=== PATIENT | male | born 1975 | race Caucasian/White ===

== ENCOUNTER → 2020-01-08 16:02 | Outpatient (BNVA) | payer OTHER, SELFPAY | PROVIDERS: Family Provider Family Medicine; Visit Provider Family Medicine | DX: Z20.828 Contact with and (suspected) exposure to other viral communicable diseases (principal) | CPT/HCPCS: 87635 ==

== ENCOUNTER 2021-02-02 16:16 | Emergency (ER) | payer OTHER, SELFPAY ==
[2021-02-02 18:03] VITALS: BP 189/97; PULSE 93; RESP 16; TEMP 36.7; O2SAT 97; BMI 36.5
--- NOTE | 2021-02-02 18:13 | ECG_ITS ---
[facility] Test Date: 2021-02-02 Pat Name: Alex Mcdonough Department: Room: Gender: Male Assurance Analyst: : 1975 Requested By: Praveen Coronado Order Number: [id number] Lees MD: Yelena Moore M.D. Measurements Intervals [place] Rate: 89 P: 21 NM: 178 QRS: -35 QRSD: 95 T: 34 QT: 349 QTc: 426 Interpretive Statements SINUS RHYTHM LEFT AXIS DEVIATION [QRS AXIS < -30] MINIMAL VOLTAGE CRITERIA FOR LVH, CONSIDER NORMAL VARIANT [MEETS CRITERIA IN ONE OF: R(aVL), S(V1), R(V5), R(V5/V6)+S(V1)] POSSIBLE ANTERIOR MYOCARDIAL INFARCTION , OF INDETERMINATE AGE [30 ms Q WAVE IN V3/V4, OR R < 0.2 mV IN V4] INTERPRETATION BASED ON A DEFAULT AGE OF 40 YEARS No previous ECG available for comparison Electronically Signed On 02-02-2021 22:00:38 VALET MANAGER by Yelena Moore M.D. [id number]
--- NOTE | 2021-02-02 18:14 | ED_ITS ---
HPI - Headache General: Chief Complaint: Headache Stated Complaint: HBP bad headache Time Seen by Provider: 02/02/21 19:27 History of Present Illness: HPI Narrative: Patient is a 45-year-old male comes to the ED with a headache and elevated blood pressure. He has been having on and off headaches for the past 2 months. This recent acute headache started approximately 2 days ago. He rates the headache 7 out of 10 and pain is located in the frontal vertex of head. On Monday he took his blood pressure and he had a reading of 180s/120. He then went and saw his PCP on Monday and he had elevated blood pressures there and he was started on some losartan. Today he still having bad headache and he checked his blood pressures again at home. Had a systolic close to 190. Denies any neurological deficits. Patient endorses having some nausea and vomiting once the past 2 days due to headache. Denies chest pain or shortness of breath. Associated symptoms: Reports nausea (one episode) and vomiting (one episode); Deny chest pain, fever(s) or rash Review of Systems Const: Denies: fever(s), chills or fatigue Eyes: Denies: change in vision or eye discomfort ENMT: Denies: throat pain, odynophagia, nasal discharge or nasal congestion Card: Denies: chest pain, palpitations, edema, swelling of feet/ankles, dyspnea on exertion or orthopnea Resp: Denies: dyspnea, productive cough or non-productive cough GI: Reports: nausea (one episode) and vomiting (one episode); Denies: abdominal pain, diarrhea, constipation or hematochezia : Denies: flank pain, difficulty urinating, dysuria or hematuria Musc: Denies: neck pain, back pain or extremity swelling Skin/Breast: Denies: rash or new lesions Neuro: Reports: headache(s); Denies: numbness in extremities or weakness in extremities PFS ED PFSH: Social History Smoking and tobacco status: never smoked Physical Exam Const: COMMON NORMALS: no acute distress, patient oriented x3 and alert GENERAL APPEARANCE: cooperative and comfortable NUTRITIONAL APPEARANCE: overweight HENMT: COMMON NORMALS: normocephalic HEAD & SCALP: normocephalic MOUTH: Normal oral and palatal mucosa present THROAT: posterior oropharynx normal and uvula midline Eye: COMMON NORMALS: Equal, round and reactive pupils present, EOMs intact bilaterally and conjunctivae normal CONJUNCTIVA: Yes conjunctivae normal PUPIL: Yes Equal, round and reactive pupils present Neck/C-Spine: COMMON NORMALS: supple GENERAL: Yes normal visual inspection Resp: COMMON NORMALS: normal respiratory effort, No retractions, No use of accessory muscles and clear to auscultation bilaterally AUSCULTATION: clear to auscultation bilaterally Cardio: COMMON NORMALS: regular rate, regular rhythm, S1 normal heart sound present, S2 normal heart sound present, No gallops present (Cardio), No clicks present (Cardio), No murmurs present (Cardio) and Peripheral pulses 2+ throughout RATE: regular rate RHYTHM: regular rhythm HEART SOUNDS: S1 normal heart sound present and S2 normal heart sound present PERIPHERAL PULSES: Peripheral pulses 2+ throughout GI: COMMON NORMALS: Normal to inspection, nondistended, normoactive bowel sounds present, Soft to palpation, non-tender and no masses PALPATION: Yes Soft to palpation : COMMON NORMALS: Yes no CVA tenderness BLADDER/KIDNEY EXAM: Yes no CVA tenderness Back/Pelvis: COMMON NORMALS: no CVA tenderness Extremity: COMMON NORMALS: normal to inspection Neuro: COMMON NORMALS: patient oriented x3, CN's II-XII intact bilaterally, moves all extremities, no focal motor deficits and no sensory deficits noted SENSORIUM/ORIENTATION: Yes alert SENSORY EXAM: Yes extremities (intact) MOTOR EXAM: 5/5 motor strength present throughout Skin: GENERAL SKIN EXAM: dry skin Course ED course: I performed the initial history, exam image and lab work-up orders on patient while he was being triaged. His main complaint was elevated blood pressure and headache for the past 3 days. Blood pressure in the ED was 189/97. Patient appears stable and in no acute distress. He has no neurological symptoms either. Denies any chest pain or shortness of breath. Patient appears stable to go back into the waiting room and told him we will try to get him into a room as soon as we can. Vital Signs: Vital signs: Vital Signs Temperature 98.6 F 02/02/21 21:16 Pulse Rate 76 02/02/21 21:16 Respiratory Rate 18 02/02/21 21:16 Blood Pressure 133/101 02/02/21 21:16 Pulse Oximetry 95 02/02/21 21:16 MDM - Headache MDM Narrative: Medical decision making narrative: Patient is a 45-year-old male comes to the ED with elevated blood pressure and headache for the past 3 days. Denies any neurological complaints. Denies any chest pain or shortness of breath. Pain is highest blood pressure here in the ED was 189/97. The rest of vitals were unremarkable. CT of head showed no acute findings. CBC and CMP were unremarkable. EKG showed sinus rhythm, 89 beats minute with no ST segment ovation depression seen. Patient was given a dose of Toradol IM while here in the ED to help with headache and his headache did improve. His blood pressure at discharge is 133/101. Patient was told to continue taking his recently prescribed losartan and told to continue checking his blood pressures multiple times throughout the day and keeping a log of them that he can show to his PCP. Follow-up with PCP in 7 to 10 days reevaluation. Return to ED precautions given. Patient understood and agree with plan. Lab Data: Attestation: I reviewed the patient's lab results. Labs: Lab Results 02/02/21 02/02/21 18:20 18:20 WBC 11.9 10^3/uL H 10 ^3/uL (4.0-10.0) RBC 5.16 10^6/uL 10^6 /uL (4.1-5.3) Hgb 15.5 g/dL g/dL (11.7-16.6) Hct 45.1 % % (42.0-52.0) MCV 87.4 fl fl (80-94) MCH 30.0 pg pg (28.0-34.0) MCHC 34.4 g/dL g/dL (30.0-36.0) RDW 13.2 % % (12.1-15.1) Plt Count 253 10^3/cmm 10^3 /cmm (130-400) MPV 11.5 fL H fL (7.4-10.4) Neut % (Auto) 74.9 % % Lymph % (Auto) 17.0 % % Hyde % (Auto) 6.6 % % Eos % (Auto) 0.8 % % Baso % (Auto) 0.4 % % Neut # (Auto) 8.91 10^3/uL H 10 ^3/uL (1.8-7.7) Lymph # (Auto) 2.0 10^3/uL 10^3/ uL (0.8-4.8) Hyde # (Auto) 0.8 10^3/uL 10^3/ uL (0.2-0.9) Eos # (Auto) 0.1 10^3/uL 10^3/ uL (0.0-0.8) Baso # (Auto) 0.1 10^3/uL 10^3/ uL (0.0-0.1) Nucleated RBC % (a uto) 0 % % Nucleated RBCs # 0.0 /100WBC /100W BC Sodium 140 mmol/L mmol/L (136-145) Potassium 3.8 mmol/L mmol/L (3.5-5.1) Chloride 102 mmol/L mmol/L (98-107) Carbon Dioxide 25 mmol/L mmol/L (22-29) Anion Gap 16.8 (5-19) BUN 10 mg/dL mg/dL (6-20) Creatinine 0.7 mg/dL mg/dL (0.7-1.2) GFR Calculation 121.4 mL/min mL/m in (90-130) Glucose 165 mg/dL H mg/dL (65-115) Calculated Osmolal ity 293 mOsm/kg mOsm/ kg (285-295) Calcium 9.0 mg/dL mg/dL (8.5-10.5) Total Bilirubin 0.2 mg/dL mg/dL (0.15-1.2) AST 24 U/L U/L (0-40) ALT 45 U/L H U/L (0-41) Alkaline Phosphata se 81 IU/L IU/L (40-130) Total Protein 7.2 g/dL g/dL (6.6-8.7) Albumin 4.2 g/dL g/dL (3.5-5.2) Globulin 3.0 g/dL g/dL (1.3-4.6) Imaging Data^: CT Head: Attestation: I personally reviewed and interpreted this imaging study as follows: Radiologist's impression: [address] [id number] Scan ReportSigned Patient: Alex Mcdonough Rlyee #: [id number]: 1975Acct#:[id number]/Sex: 45 / MADM Date: 02/02/21Loc: ERRoom/Bed:Attending Dr: Ordering Provider/Ordering MD: Praveen Coronado Date of Service: 02/02/21 Procedure(s): CT head wo con* [id number] Accession Number(s): [id number] Report Number: [id number] PROCEDURE INFORMATION: Exam: CT Head Without Contrast Exam date and time: 02/02/2021 6:13 PM Age: 45 years old Clinical indication: Pain; Headache not specified; Patient HX: Headache x3 months, hbp; Additional info: Headache and elevated BP TECHNIQUE: Imaging protocol: Computed tomography of the head without contrast. Radiation optimization: All CT scans at this facility use at least one of these dose optimization techniques: automated exposure control; mA and/or kV adjustment per patient size (includes targeted exams where dose is matched to clinical indication); or iterative reconstruction. COMPARISON: No relevant prior studies available. RADIATION DOSE METRICS: Total DLP (mGy-cm): 1006.94 FINDINGS: Brain: Normal. No hemorrhage. Unremarkable white matter. No mass effect. Cerebral ventricles: No ventriculomegaly. Paranasal sinuses: Visualized sinuses are unremarkable. No fluid levels. Mastoid air cells: Visualized mastoid air cells are well aerated. Bones/joints: Unremarkable. No acute fracture. Soft tissues: Unremarkable. CT/CT head wo con* [id number] IMPRESSION: No acute intracranial abnormality. Dictated By:Js Mcmanus MDSigned By:Js Mcmanus MDSigned Date/Time:02/02/21 1914DD/ 1813 EKG Data^: EKG 1: Attestation: I personally reviewed and interpreted this EKG as follows: EKG interpretation date: 02/02/21 Interpretation: Normal sinus rhythm, 89 bpm, no ST segment elevation or depression seen. 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 Measurements Intervals [place] Rate: 89 P: 21 WA: 178 QRS: -35 QRSD: 95 T: 34 QT: 349 QTc: 426 Interpretive Statements SINUS RHYTHM LEFT AXIS DEVIATION [QRS AXIS < -30] MINIMAL VOLTAGE CRITERIA FOR LVH, CONSIDER NORMAL VARIANT [MEETS CRITERIA IN ONE OF: R(aVL), S(V1), R(V5), R(V5/V6)+S(V1)] POSSIBLE ANTERIOR MYOCARDIAL INFARCTION , OF INDETERMINATE AGE [30 ms Q WAVE IN V3/V4, OR R < 0.2 mV IN V4] INTERPRETATION BASED ON A DEFAULT AGE OF 40 YEARS No previous ECG available for comparison Electronically Signed On 02-02-2021 22:00:38 LIFESTYLE BLOCK FARMER by Yelena Moore M.D. [id number] Dictated By:Yelena Moore MDSigned By:Yelena Moore MDSigned Date/Time:02/02/21D/ 14 Discharge Plan Discharge Patient Disposition: Home Clinical Impression: Headache Qualifiers: Headache type: tension-type Headache chronicity pattern: acute headache Intractability: not intractable Qualified Code(s): G44.209 - Tension-type headache, unspecified, not intractable Hypertension Qualifiers: Hypertension type: unspecified Qualified Code(s): I10 - Essential (primary) hypertension Condition: Stable Prescriptions: No Action ativan PO RF: 0 celexa PO RF: 0 Daptacel (DTaP Pediatric) (PF) 15-10-5 Lf-mcg-Lf/0.5mL suspension 0.5 ml IM ONCE Qty: 0.5 RF: 0 Discharge Orders: Discharge ED (Routine); Ordered 02/02/21 Ordered By: Praveen Coronado Discharge Diet: Regular Discharge Activity: Resume usual activity Patient Instructions: Acute Headache (DC), Hypertension (ED) Activity Restrictions/Additional Instructions: Follow-up with medical provider as directed in the next 7 to 10 days for reevaluation. Continue to check blood pressures daily and keep a log to show primary care doctor your blood pressures. Continue taking home medications as previously prescribed. Return to the ER or your medical provider if condition worsens. Please read and understand discharge instructions. Thank you for choosing [facility] for your healthcare needs today. Please realize this is an emergency room and that we are providing you with a medical screening exam and this may not be complete and all inclusive of all the testing and or work up that you may need to determine your ailment or severity of your illness. It is very important that you follow up as instructed or that you return to the Emergency Department should you have concerns or if your condition changes or worsens in any way. Coding Level of Care Code ED Headlight Assembler for Abelardo Murray Exam Comprehensive
[2021-02-02 18:28] LABS: Basophils # 0.1 10^3/uL (0.0-0.1); Basophils % 0.4 %; Eosinophils # 0.1 10^3/uL (0.0-0.8); Eosinophils % 0.8 %; Hematocrit 45.1 % (42.0-52.0); Hemoglobin 15.5 g/dL (11.7-16.6); Mean Corpuscular HGB Conc 34.4 g/dL (30.0-36.0); Mean Corpuscular Volume 87.4 fl (80-94); Mean Platelet Volume 11.5 fL (7.4-10.4); Monocytes # 0.8 10^3/uL (0.2-0.9); Monocytes % 6.6 %; Neutrophils # 8.91 10^3/uL (1.8-7.7); Neutrophils % 74.9 %; Nucleated Red Blood Cells % 0 %; Platelet Count 253 10^3/cmm (130-400); Red Blood Count 5.16 10^6/uL (4.1-5.3); Red Cell Distribution Width 13.2 % (12.1-15.1); White Blood Count 11.9 10^3/uL (4.0-10.0)
[2021-02-02 18:49] LABS: Alanine Aminotransferase 45 U/L (0-41); Albumin Level 4.2 g/dL (3.5-5.2); Alkaline Phosphatase 81 IU/L (40-130); Anion Gap 16.8 (5-19); Aspartate Amino Transferase 24 U/L (0-40); Blood Urea Nitrogen 10 mg/dL (6-20); Carbon Dioxide 25 mmol/L (22-29); Chloride 102 mmol/L (98-107); Glomerular Filtration Rate 121.4 mL/min (90-130); Glucose 165 mg/dL (65-115); Osmolality Calculated 293 mOsm/kg (285-295); Potassium 3.8 mmol/L (3.5-5.1); Sodium 140 mmol/L (136-145); Total Bilirubin 0.2 mg/dL (0.15-1.2); Total Protein 7.2 g/dL (6.6-8.7)
[2021-02-02] MEDS: ketorolac 60 mg/2 mL INJ IM (19:57)
[2021-02-02 21:16] VITALS: BP 133/101; PULSE 76; RESP 18; TEMP 37; O2SAT 95
== END 2021-02-02 21:21 | disposition home or self-care (01) ==
PROVIDERS: Emergency Provider Physician Assistant
DX: G44.209 Tension-type headache, unspecified, not intractable (principal); I10 Essential (primary) hypertension
CPT/HCPCS: 36415; 70450; 80053; 85025; 93005; 96372; 99283; J1885

== ENCOUNTER → 2021-08-17 09:37 | Outpatient (BNVA) | payer OTHER, SELFPAY | PROVIDERS: Visit Provider Family Medicine | DX: I10 Essential (primary) hypertension (principal); E11.9 Type 2 diabetes mellitus without complications; R79.89 Other specified abnormal findings of blood chemistry | CPT/HCPCS: 80053; 80061; 83036; 84403 ==

== ENCOUNTER → 2021-08-20 12:00 | Outpatient (BNVA) | payer OTHER, SELFPAY | PROVIDERS: Visit Provider Family Medicine | DX: R79.89 Other specified abnormal findings of blood chemistry (principal); I10 Essential (primary) hypertension | CPT/HCPCS: 84402 ==

== ENCOUNTER → 2021-09-17 08:52 | Outpatient (BNVA) | payer OTHER, SELFPAY | PROVIDERS: PCP Family Medicine; Visit Provider Family Medicine | DX: I10 Essential (primary) hypertension (principal); F32.A Depression, unspecified; E11.9 Type 2 diabetes mellitus without complications; R53.83 Other fatigue | CPT/HCPCS: 80053; 80061; 83036; 84402; 84403 ==

== ENCOUNTER 2021-10-06 10:40 | Emergency (ER) | payer OTHER, SELFPAY ==
[2021-10-06 11:07] VITALS: BP 148/92; PULSE 89; RESP 16; TEMP 36.8
--- NOTE | 2021-10-06 11:18 | CT_ITS ---
WS: [id number] CT LUMBAR SPINE TECHNIQUE: Noncontrast CT of the lumbar spine with coronal and sagittal reformatted images. CLINICAL INFORMATION: lumbar spine pain COMPARISON: None. DLP: 1736.[address] scans at [facility] use at least one of these dose optimization techniques: automated e xposure control; mA and/or kV adjustment per patient size (includes targeted exams where dose is matc hed to clinical indication); or iterative reconstruction. FINDINGS: Mild lumbar curve convex LEFT. No acute compression. Disc osteophyte complexes with peripheral disc c alcification more prominent at at T12-L1, L2-L3, and L5-S1. Moderate RIGHT T11-T12 bony foraminal renee rowing with RIGHT facet arthropathy. T12-L1: Disc osteophyte complex endplate ridging eccentric to the RIGHT. Mild central canal stenosis. Impingement traversing RIGHT L1 nerve root. Mild RIGHT foraminal narrowing. Moderate facet arthropat hy with mild central canal stenosis. L1-L2: Moderate facet arthropathy. Spinal canal and foramen are patent. Slight narrowing of the LEFT subarticular recess. Mild central canal stenosis. L2-L3: LEFT pericentral disc osteophyte complex. Moderate central canal stenosis. Impingement LEFT ha barticular recess and traversing LEFT L3 nerve root. Foramen are patent. L3-L4: Disc osteophyte complex with endplate ridging. Mild central canal stenosis. Narrowing of the s ubarticular recess bilaterally. Mild LEFT foraminal narrowing. Moderate facet arthropathy. L4-L5: Suggestion of prior LEFT hemilaminectomy. Disc osteophyte complex with mild central canal sten osis. Narrowing of the subarticular recess bilaterally LEFT greater than RIGHT. Foramen are patent. L5-S1: Disc osteophyte complex with LEFT pericentral disc osteophyte protrusion. Impingement traversi ng LEFT greater than RIGHT S1 nerve roots. Mild central canal stenosis. Moderate bilateral bony oliva inal narrowing. Moderate facet arthropathy. Adrenal glands are normal. Normal caliber abdominal aorta. CT/CT lumbar spine wo con* [id number] IMPRESSION: 1. Mild lumbar curve. No acute compression fractures. 2. Disc osteophyte complexes with peripheral disc calcification and mild to mo derate central canal stenosis at T12-L1, L2-L3, L3-L4, L4-L5. This is worse at L2-L3 with moderate central canal stenosis and impingement on the traversing LE FT L3 nerve root. 3. LEFT eccentric disc osteophyte complex L5-S1 impinges the traversing LEFT g reater than RIGHT S1 nerve roots. Moderate bilateral L5-S1 bony foraminal narro wing. 4. Moderate RIGHT T11-T12 bony foraminal narrowing. 5. Moderate facet arthropathy throughout the lumbar spine.
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
[2021-10-06] MEDS: orphenadrine 30 mg/mL Inj 2 mL 60 MG IVP (11:57)
[2021-10-06 11:58] VITALS: RESP 16
[2021-10-06] MEDS: morphine 4 mg/mL SDV 1 mL IM (11:58)
[2021-10-06 12:59] VITALS: BP 135/86; PULSE 90; RESP 16; O2SAT 98
[2021-10-06 13:21] VITALS: RESP 16
[2021-10-06] MEDS: oxyCODONE-APAP 5-325 mg Tablet 1 TAB PO (13:21)
--- NOTE | 2021-10-15 13:54 | DCPLANNER ---
Addendum entered by Lisbeth Tripp 10/28/21 13:41: craft manager called [facility] to confirm that clinic received patients information. craft manager was told that clinic received patients information and it is being worked up. Clinic will call patient with appointment information. Addendum entered by Lisbeth Tripp 10/26/21 12:19: craft manager received notification that patient wanted his referral to go to [facility] ortho - rehabilitation caseworker sent patients information to fax number [phone] for review. Clinic will call patient with appointment information. Original Note: craft manager had message to schedule a follow up appointment for patient with ortho. craft manager sent patients information to the front office staff at ortho. Patients information will be printed and reviewed. Clinic will call patient with appointment information.
== END 2021-10-06 14:14 | disposition home or self-care (01) ==
PROVIDERS: Emergency Provider Physician Assistant; PCP Family Medicine
DX: M51.16 Intervertebral disc disorders with radiculopathy, lumbar region (principal); M48.061 Spinal stenosis, lumbar region without neurogenic claudication; M47.26 Other spondylosis with radiculopathy, lumbar region; M25.78 Osteophyte, vertebrae
CPT/HCPCS: 72131; 96372; 96374; 99285; J2270; J2360

== ENCOUNTER 2023-11-22 19:53 | Emergency (ER) | payer OTHER, SELFPAY ==
[2023-11-22] VITALS (7 sets, daily range): BP systolic 119–137; BP diastolic 73–89; PULSE 83–95; RESP 16–18; TEMP 36.7; O2SAT 95–96; BMI 36.5
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
--- NOTE | 2023-11-22 20:01 | ECG_ITS ---
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 Measurements Intervals [place] Rate: 86 P: 43 AL: 185 QRS: -23 QRSD: 101 T: 21 QT: 372 QTc: 446 Interpretive Statements SINUS RHYTHM POSSIBLE ANTERIOR MYOCARDIAL INFARCTION , PROBABLY OLD [30 ms Q WAVE IN V3/V4, OR R < 0.2 mV IN V4] Compared to ECG 02/02/2021 18:15:49 Left-axis deviation no longer present Myocardial infarct finding still present Electronically Signed On 11-24-2023 07:42:47 CDT by Jaspal Stewart M.D. [id number]
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
[2023-11-22] MEDS: ketorolac 30 mg/mL INJ IVP (21:35)
[2023-11-22] MEDS: ondansetron 2 mg/ML SDV 2 mL 4 MG IVP (21:35)
[2023-11-22] MEDS: orphenadrine 30 mg/mL Inj 2 mL 60 MG IVP (21:35)
[2023-11-22] MEDS: HYDROmorphone 1 mg/mL INJ 1 mL 0.5 MG IVP (21:36)
[2023-11-22] MEDS: HYDROcodone-acetaminophen 5-325 mg Tablet 2 TAB PO (22:11)
== END 2023-11-22 22:14 | disposition home or self-care (01) ==
PROVIDERS: Emergency Provider Emergency Medicine; PCP Family Medicine
DX: S16.1XXA Strain of muscle, fascia and tendon at neck level, initial encounter (principal); S46.912A Strain of unspecified muscle, fascia and tendon at shoulder and upper arm level, left arm, initial encounter; V89.2XXA Person injured in unspecified motor-vehicle accident, traffic, initial encounter
CPT/HCPCS: 70450; 71250; 72125; 72128; 72131; 73000; 93005; 96374; 96375; 99285; J1170; J1885; J2360; J2405

== ENCOUNTER 2024-01-26 11:45 | Outpatient (CLI) | payer OTHER, SELFPAY ==
--- NOTE | 2024-01-26 11:45 | MR_ITS ---
WS: [id number] MRI THORACIC SPINE WITHOUT CONTRAST TECHNIQUE: Sagittal T1, T2 and STIR imaging. Axial T2 imaging. Noncontrast imaging obtained. 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 COMPARISON: CT 11/22/23 FINDINGS: Mild thoracic curve and mild thoracic kyphosis. No acute compression fractures. No high-grade central canal stenosis. Cord signal is normal. Moderate facet arthropathy lower thoracic spine. Mild annular bulging T12-L1 with slight effacement of the ventral thecal sac. Adrenal glands are normal. Normal caliber thoracic aorta. Normal paravertebral soft tissues. MR/MR thoracic spin wo con* [id number] IMPRESSION: 1. Mild thoracic curve. Mild thoracic kyphosis. No acute compression fractures . 2. Cord signal is normal. 3. Mild annular bulging T12-L1. 4. No other acute findings.
== END 2024-01-26 11:46 | disposition home or self-care (01) ==
PROVIDERS: PCP Family Medicine; Visit Provider Family Medicine
DX: M47.814 Spondylosis without myelopathy or radiculopathy, thoracic region (principal); M46.94 Unspecified inflammatory spondylopathy, thoracic region
CPT/HCPCS: 72146

== ENCOUNTER 2024-08-02 06:46 | Outpatient (CLI) | payer SELFPAY ==
--- NOTE | 2024-08-02 07:15 | MR_ITS ---
WS: [id number] MRI THORACIC SPINE noncontrast HISTORY: Back pain and muscle spasms. COMPARISON: 01/26/2024 TECHNIQUE: Multiplanar sequences are performed in sagittal and axial planes. Examination is compromised by motion. Mild thoracic curvature and kyphosis. No acute fractures are identified. Subtle marrow changes would be obscured with this amount of motion. There is signal artifact through the upper thoracic cord. The remaining cord is normal. No cord atrophy or edema. Moderate facet joint arthritis in the mid to lower thoracic spine. Mild annular disc bulging at with mild effacement encroachment upon the ventral thecal sac. Disc is asymmetric to the RIGHT. Encroachment upon the RIGHT traversing L1 nerve root. Similar to the prior study. No paravertebral soft tissue abnormalities. Normal aorta. T11-12: Facet joint arthropathy encroaches upon the posterior thecal sac greatest on the RIGHT at T11-12. MR/MR thoracic spin wo con* [id number] IMPRESSION: 1. Exam compromised by motion artifact. 2. No signal abnormality within the cord. 3. Asymmetric disc bulging at T12-L1 with contact on the traversing RIGHT L1 n erve root. Similar to the prior study. 4. Asymmetric facet joint arthropathy encroaching upon the posterior thecal sa c on the RIGHT at T11-12. No change.
== END 2024-08-02 06:47 | disposition home or self-care (01) ==
LOC: RAD 06:50
PROVIDERS: PCP Family Medicine; Visit Provider Family Medicine
DX: M47.814 Spondylosis without myelopathy or radiculopathy, thoracic region (principal); M51.34 Other intervertebral disc degeneration, thoracic region
CPT/HCPCS: 72146

== ENCOUNTER → 2024-08-27 13:40 | Outpatient (BNVA) | payer OTHER, SELFPAY | PROVIDERS: PCP Family Medicine; Visit Provider Orthopaedic Surgery | DX: M47.814 Spondylosis without myelopathy or radiculopathy, thoracic region (principal); M54.50 Low back pain, unspecified | CPT/HCPCS: 72072; 72110 ==

== ENCOUNTER 2024-10-15 09:47 | Emergency (ER) | payer OTHER, SELFPAY ==
--- NOTE | 2024-10-15 09:50 | USCV_ITS ---
Alex Mcdonough Age: 49 Gender: M : 1975 Exam Date: 10/15/2024 10:01 Ordering Phys: Gloria Frey MD Technologist: PETERSON Exam Location: [facility] [place] Indication: rt leg pain just under skin in rt calf PROCEDURES: Venous duplex imaging was performed in only the right lower extremity. The following venous structures were evaluated: common femoral vein, profunda vein, proximal portion of the greater saphenous vein, superficial femoral vein, and the popliteal vein. In addition, the posterior tibial and peroneal trunk were evaluated. FINDINGS: Normal 2-D Doppler and augmentation and compressibility throughout the lower extremity venous structures. Additional imaging through the proximal calf veins also reveals no thrombus. There is superficial thrombus in the rt great saph mid calf. CONCLUSIONS No DVT right lower extremity. Mild superficial thrombophlebitis right GSV in calf. Dr. Sandra Crisostomo DO (Electronically Signed) Final Date: 15 October 2024 10:40 S
[2024-10-15 09:51] VITALS: BP 126/88; PULSE 99; RESP 17; TEMP 36.6; O2SAT 97; BMI 37.5
--- OUTSIDE RECORDS SUMMARY | 2024-10-15 09:51 | XMS_ITS | Clinical Summary ---
Author Organization [facility] on Address [address] [place] [phone] Phone Care Team Providers Care Optometric Tech Name Role Phone Non-Staff, Physician Primary Care Provider Unava ilable Allergies No known active allergies Medications ALPRAZolam (XANAX) 0.25 mg tablet Take 0.25 mg by mouth nightly as needed for Anxiety. Active citalopram (CELEXA) 10 mg tablet Take 10 mg by mouth daily. Active Active Problems No known active problems Immunizations Immunization Administration Dates Next Due (TDVAX)(7 YRS UP) TETANUS AN D DIPHTHERIA TOXOIDS, ADSORBED (2 LF OF TETANUS TOXOID AND 2 LF OF DIPHTHERIA TOXOID), 0.5ML (PF), IM 06/20/2003 Family History Medical History Relation Name Comments Blindness Maternal Aunt Detachment/Tears Maternal Aunt Relation Name Status Comments Maternal Aunt Social History Tobacco Use Types Packs/Day Years Used Date Smoking Tobacco: Never Sex and Gender Information Value Date Recorded Sex Assigned at Not on file Legal Sex Male 6:28 AM [employer] Gender Identity Not on file Sexual Orientation Not on file Last Filed Vital Signs Vital Sign Reading Time Taken Comments Blood Pressure 138/81 04/16/2015 1:25 PM [employer] Pulse - - Temperature - - Respiratory Rate - - Oxygen Saturation - - Inhaled Oxygen Concentration - - Weight 145.2 kg (320 lb) 04/16/2015 1:25 PM [employer] Height 190.5 cm (6' 3 ) 04/16/2015 1:25 PM [employer] Body Mass Index 40 04/16/2015 1:25 PM [employer] Plan of Treatment Health Maintenance Due Date Last Done Comments HEPATITIS B VACCINES (1 of 3 - 19+ 3-dose series) 08/13 DTAP/TDAP/TD VACCINES (1 - Tdap) 06/21/2003 06/20/19 04 COLORECTAL SCREENING 08/23/2019 Colorectal Cancer Screening 08/23/2019 FIT-DNA Q 3 years 08/23/2019 FIT/FOBT Q 1 year 08/23/2019 Flex Sig/CT Colonography Q 5 years 08/23/2019 ZOSTER VACCINE (1 of 2) 2024 INFLUENZA VACCINE (#1) 2024 Insurance [employer] CHOICE POS Care Teams Optometric Tech Relationship Specialty Start Date End Date Non-Staff, Physician NO ADDRESS ON FILE PCP - General 06/24/13
--- OUTSIDE RECORDS SUMMARY | 2024-10-15 09:51 | XMS_ITS | Encounter Summary ---
Author Organization [facility] Address [address] [place] [address] Care Team Providers Care Research Animal Attendant Name Role Phone Non-Staff, Physician Primary Care Provider Unava ilable Encounter Details Date Type Department Care Team (Latest Contact Info) Description 07/04/2003 Outpatient Historical [facility] Medicine [address] [phone] Susannah Ashton MD NO ADDRESS ON FILE IRRITABLE COLON (Primary Dx); JOINT PAIN-L/LEG Social History Tobacco Use Types Packs/Day Years Used Date Smoking Tobacco: Never Assessed Sex and Gender Information Value Date Recorded Sex Assigned at Not on file 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
--- OUTSIDE RECORDS SUMMARY | 2024-10-15 09:51 | XMS_ITS | Encounter Summary ---
Author Organization [facility] Address [address] [place] [address] Care Team Providers Care Marketing Teacher Name Role Phone Non-Staff, Physician Primary Care Provider Unava ilable Encounter Details Date Type Department Care Team (Latest Contact Info) Description 01/08/2003 Outpatient Historical 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
--- OUTSIDE RECORDS SUMMARY | 2024-10-15 09:51 | XMS_ITS | Encounter Summary ---
Author Organization [facility] Address [address] [place] [address] Care Team Providers Care Associate Producer Name Role Phone Non-Staff, Physician Primary Care Provider Unava ilable Encounter Details Date Type Department Care Team (Latest Contact Info) Description 06/20/2003 Outpatient Historical [facility] Family Medicine- [address] [place] [address] Susannah Ashton MD NO ADDRESS ON FILE ABDOMINAL PAIN UNSPEC SITE (Primary Dx); IRRITABLE COLON; VACCINE FOR TETANUS/DIPHTERIA Social History Tobacco Use Types Packs/Day Years Used Date Smoking Tobacco: Never Assessed Sex and Gender Information Value Date Recorded Sex Assigned at Not on file 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
--- OUTSIDE RECORDS SUMMARY | 2024-10-15 09:51 | XMS_ITS | Encounter Summary ---
Author Organization [facility] Address [address] [place] [address] Care Team Providers Care Automation Operator Name Role Phone Non-Staff, Physician Primary Care Provider Unava ilable Encounter Details Date Type Department Care Team (Latest Contact Info) Description 08/11/2003 Outpatient Historical [facility] Family Medicine- [address] [place] [phone] Susannah Ashton MD NO ADDRESS ON FILE ACUTE BRONCHITIS (Primary Dx); ACUTE PHARYNGITIS Social History Tobacco Use Types Packs/Day Years Used Date Smoking Tobacco: Never Assessed Sex and Gender Information Value Date Recorded Sex Assigned at Not on file 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
--- OUTSIDE RECORDS SUMMARY | 2024-10-15 09:51 | XMS_ITS | Encounter Summary ---
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
--- OUTSIDE RECORDS SUMMARY | 2024-10-15 09:51 | XMS_ITS | Encounter Summary ---
Author Organization [facility] Address [address] [place] [address] Care Team Providers Care Solar Project Manager Name Role Phone Non-Staff, Physician Primary Care Provider Unava ilable Encounter Details Date Type Department Care Team (Latest Contact Info) Description 07/15/2003 Outpatient Historical [facility] Medicine [address] [phone] Brent Bennett NP NO ADDRESS ON FILE ACUTE PHARYNGITIS (Primary Dx); IMPACTED CERUMEN Social History Tobacco Use Types Packs/Day Years Used Date Smoking Tobacco: Never Assessed Sex and Gender Information Value Date Recorded Sex Assigned at Not on file 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
--- OUTSIDE RECORDS SUMMARY | 2024-10-15 09:51 | XMS_ITS | Encounter Summary ---
Author Organization [facility] Address [address] [place] [address] Care Team Providers Care Automatic Seamer Name Role Phone Non-Staff, Physician Primary Care Provider Unava ilable Encounter Details Date Type Department Care Team (Latest Contact Info) Description 05/22/2002 Outpatient Historical [facility] Medicine [address] [phone] Susannah Ashton MD NO ADDRESS ON FILE ACUTE BRONCHITIS (Primary Dx); LUMBAGO; SPASM OF MUSCLE Social History Tobacco Use Types Packs/Day Years Used Date Smoking Tobacco: Never Assessed Sex and Gender Information Value Date Recorded Sex Assigned at Not on file 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
--- OUTSIDE RECORDS SUMMARY | 2024-10-15 09:51 | XMS_ITS | Encounter Summary ---
Author Organization [facility] Address [address] [place] [address] Care Team Providers Care Home Service Advisor Name Role Phone Non-Staff, Physician Primary Care Provider Unava ilable Encounter Details Date Type Department Care Team (Latest Contact Info) Description 11/17/2003 Outpatient Historical [facility] Family Medicine- [address] [place] [phone] Susannah Ashton MD NO ADDRESS ON FILE ACUTE URI NOS (Primary Dx); ACUTE BRONCHITIS; ANXIETY STATE NOS; Pain in limb Social History Tobacco Use Types Packs/Day Years Used Date Smoking Tobacco: Never Assessed Sex and Gender Information Value Date Recorded Sex Assigned at Not on file 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
--- NOTE | 2024-10-15 09:59 | W.ED.GENADLT ---
HPI - General Adult General: Chief complaint: General Medical Stated complaint: Pos Blood clot right leg and pain Time Seen by Provider: 10/15/24 09:51 Source: patient Mode of arrival: ambulatory Limitations: no limitations History of Present Illness: 49-year-old male states has been having right lower leg pain since yesterday. He states he has a spot on his calf that is very tender to touch he is concerned he has a blood clot. Denies any history of blood clots denies any shortness of breath. Associated symptoms: Deny chest pain, dyspnea, headache(s), nausea, rash or vomiting Related Data Previous Rx's ?Medication ?Instructions ?Recorded diclofenac sodium 50 mg 50 mg PO BID PRN pain #14 tabs 11/22/23 tablet,delayed release hydrochlorothiazide 25 mg tablet 25 mg PO QAM #90 tabs 11/30/23 amlodipine 10 mg tablet 10 mg PO DAILY #90 tabs 12/19/23 duloxetine 60 mg capsule,delayed See Rx Instructions .Route 06/05/24 release .COMPLEX #30 caps cyclobenzaprine 10 mg tablet 10 mg PO Q8H PRN muscle spasm #90 07/25/24 tabs tramadol 50 mg tablet 50 - 100 mg (1 - 2 x 50 mg) PO TID 07/25/24 PRN thoracic back pain 10 days #90 tabs losartan 100 mg tablet 100 mg PO DAILY #90 tabs 07/29/24 alprazolam 1 mg tablet 1 mg PO QID PRN anxiety #120 tabs 08/19/24 ondansetron HCl 4 mg tablet 4 mg PO Q6H PRN nausea and 08/26/24 vomiting #90 tabs naproxen 500 mg tablet (Naprosyn) 500 mg PO BID PRN pain #20 tabs 10/15/24 Allergies Allergy/AdvReac Type Severity Reaction Status Date / Time zolpidem (From Ambien) Allergy Unknown Verified 10/15/24 08:14 Review of Systems Const: Denies: fever(s), chills, body aches or change in appetite ENMT: Denies: throat pain or dental pain Card: Denies: chest pain Resp: Denies: dyspnea GI: Denies: abdominal pain, nausea, vomiting or diarrhea Musc: Reports: extremity pain; Denies: neck pain or back pain Skin/Breast: Denies: rash Neuro: Denies: headache(s) PFSH ED PFSH: Medical History Generalized anxiety disorder Surgical History No pertinent past surgical history Social History Smoking and tobacco/nicotine status: never used tobacco/nicotine Second hand smoke exposure: No Alcohol intake: never Substance/Drug Use: never Adopted: No Caregiver/support person: No Lives independently: Yes Household members: children Housing: House Marital status: Number of children: 2 service: No Current occupational status: employed Physical Exam Const: COMMON NORMALS: no acute distress, patient oriented x3 and healthy appearing HENMT: COMMON NORMALS: normocephalic and atraumatic HEAD & SCALP: normocephalic and atraumatic Eye: COMMON NORMALS: conjunctivae normal CONJUNCTIVA: Yes conjunctivae normal Neck/C-Spine: COMMON NORMALS: full ROM and supple Chest: COMMONS NORMALS: normal inspection of the chest Resp: COMMON NORMALS: normal respiratory effort Cardio: COMMON NORMALS: regular rate RATE: regular rate Extremity: COMMON NORMALS: full ROM NARRATIVE EXTREMITY EXAM: Tenderness noted to right lower extremity some swelling distal pulses sensation intact Neuro: COMMON NORMALS: patient oriented x3, moves all extremities and no focal motor deficits Psych: COMMON NORMALS: mental status grossly normal, Normal thought process present and cooperative THOUGHT PROCESS: Normal thought process present Skin: COMMON NORMALS: no rashes or lesions noted and no wounds GENERAL SKIN EXAM: no rashes or lesions noted Course Vital Signs: Vital signs: Vital Signs Temperature 97.8 F 10/15/24 09:51 Pulse Rate 99 10/15/24 09:51 Respiratory Rate 17 10/15/24 09:51 Blood Pressure 126/88 10/15/24 09:51 Pulse Oximetry 97 10/15/24 09:51 Oxygen Delivery Me thod Room Air 10/15/24 09:51 MDM - General Adult Medical Decision Making Patient presents here with superficial thrombophlebitis of right lower leg no signs of DVT he is to NSAIDs warm compresses follow-up with his PCP he stable for discharge return if worsening Medical Records I reviewed the patient's medical records. All radiology interpretation(s) finalized by discharge Discharge Plan Discharge Patient Disposition: Home Clinical Impression: Superficial thrombophlebitis of right leg Condition: Stable Prescriptions: New naproxen [Naprosyn] 500 mg tablet 500 mg PO BID PRN (Reason: pain) Qty: 20 0RF No Action Daptacel (DTaP Pediatric) (PF) 15-10-5 Lf-mcg-Lf/0.5mL suspension 0.5 ml IM ONCE Qty: 0.5 0RF ondansetron HCl 4 mg tablet 4 mg PO Q6H PRN (Reason: nausea and vomiting) Qty: 90 1RF Rx Instructions: take prior to taking pain medication prn cyclobenzaprine 10 mg tablet 10 mg PO Q8H PRN (Reason: muscle spasm) Qty: 90 0RF tramadol 50 mg tablet 50 - 100 mg PO TID PRN (Reason: thoracic back pain) 10 Days Qty: 90 0RF hydrochlorothiazide 25 mg tablet 25 mg PO QAM Qty: 90 3RF amlodipine 10 mg tablet 10 mg PO DAILY Qty: 90 3RF duloxetine 60 mg capsule,delayed release(DR/EC) See Rx Instructions .ROUTE .COMPLEX Qty: 30 5RF Dose Instruction: take 1 capsule BY MOUTH EVERY DAY Rx Instructions: take 1 capsule BY MOUTH EVERY DAY losartan 100 mg tablet 100 mg PO DAILY Qty: 90 3RF alprazolam 1 mg tablet 1 mg PO QID PRN (Reason: anxiety) Qty: 120 3RF diclofenac sodium 50 mg tablet,delayed release (DR/EC) 50 mg PO BID PRN (Reason: pain) Qty: 14 0RF Discharge Orders: Discharge ED (Routine); Ordered 10/15/24 Ordered By: Gloria Frey Referrals: Gustavo Loredo DO [Primary Care Provider, Family Practice] - 4-7 days Discharge Diet: Advance as tolerated Discharge Activity: Resume usual activity Patient Instructions: Superficial Thrombophlebitis (ED) Print Language: [place] Coding Level of Care Code ED Supervisor Bindery for Abelardo Murray
[2024-10-15 10:17] VITALS: BP 126/90; PULSE 96; RESP 18; O2SAT 96
== END 2024-10-15 10:27 | disposition home or self-care (01) ==
PROVIDERS: Emergency Provider Emergency Medicine; PCP Family Medicine
DX: I80.01 Phlebitis and thrombophlebitis of superficial vessels of right lower extremity (principal)
CPT/HCPCS: 93971; 99284; J9999; Q0162

== ENCOUNTER 2025-01-28 07:26 | Day surgery (SDC) | payer OTHER, SELFPAY ==
[2025-01-28 07:50] VITALS: BP 127/93; PULSE 109; RESP 17; O2SAT 96; BMI 36.5
--- NOTE | 2025-01-28 07:50 | ANES.PREANE2 ---
Pre-Anesthetic Assessment Height/Weight: Height 6 ft 3 in Preop Diagnosis: Screening colonoscopy Operation Date: 01/28/25 08:30 Proposed Procedures p Colonoscopy 42336 G0105 Z12.11(Not Applicable) - Les Joiner MD Was Beta Екатерина taken within 24 hours: N/A Was Clonidine taken within 24 hours: N/A Social No alcohol and No tobacco Exam alert, oriented x 3, clear to auscultation bilaterally and regular rate & rhythm Airway Submandibular: within normal limits Cervical ROM: within normal limits Mallampati: Class III Dentition: full Comments: Comments: Very large cronin, missing multiple teeth. Denies any loose Anesthetic Plan ASA status: 3 Anesthesia: MAC Other: No prior issues with anesthesia History of hypertension on HCTZ, amlodipine and losartan Labs reviewed from today, NA 135, K+ 3.7 RICHARD, has not been wearing his mask recently METs greater than 4 Plan for MAC anesthesia Medications/Allergies Home Medications ?Medication ?Instructions ?Recorded ?Confirmed ?Last Taken ?Type diclofenac sodium 50 mg 50 mg PO BID PRN pain #14 tabs 11/22/23 01/28/25 Unknown Rx tablet,delayed release hydrochlorothiazide 25 mg tablet 25 mg PO QAM #90 tabs 11/30/23 01/28/25 01/27/25 Rx cyclobenzaprine 10 mg tablet 10 mg PO Q8H PRN muscle spasm #90 07/25/24 01/28/25 Unknown Rx tabs tramadol 50 mg tablet 50 - 100 mg (1 - 2 x 50 mg) PO TID 07/25/24 01/28/25 Unknown Rx PRN thoracic back pain 10 days #90 tabs losartan 100 mg tablet 100 mg PO DAILY #90 tabs 07/29/24 01/28/25 01/27/25 Rx alprazolam 1 mg tablet 1 mg PO QID PRN anxiety #120 tabs 08/19/24 01/28/25 01/27/25 Rx ondansetron HCl 4 mg tablet 4 mg PO Q6H PRN nausea and 08/26/24 01/28/25 Unknown Rx vomiting #90 tabs naproxen 500 mg tablet (Naprosyn) 500 mg PO BID PRN pain #20 tabs 10/15/24 01/28/25 Unknown Rx amlodipine 10 mg tablet 10 mg PO DAILY #90 tabs 12/10/0701/28/25 01/28/25 Rx duloxetine 60 mg capsule,delayed 60 mg PO DAILY 01/22/25 01/28/25 01/27/25 History release Allergies Allergy/AdvReac Type Severity Reaction Status Date / Time zolpidem (From Ambien) Allergy Unknown Verified 01/28/25 07:45 [facility] Anesthesia Medical History Generalized anxiety disorder Surgical History No pertinent past surgical history Social History Smoking and tobacco/nicotine status: never used tobacco/nicotine Second hand smoke exposure: No Alcohol intake: never Substance/Drug Use: never Adopted: No Caregiver/support person: No Lives independently: Yes Household members: children Housing: House Marital status: Number of children: 2 service: No Current occupational status: employed Data Anesthesia 01/28/25 08:00
[2025-01-28 07:58] VITALS: TEMP 36.1
[2025-01-28] MEDS: ondansetron 2 mg/ML SDV 2 mL 4 MG IVP (08:19)
[2025-01-28 08:35] LABS: Anion Gap 18.7 (5-19); Blood Urea Nitrogen 11 mg/dL (6-20); Calcium 9.4 mg/dL (8.5-10.5); Carbon Dioxide 23 mmol/L (22-29); Chloride 97 mmol/L (98-107); Glucose 322 mg/dL (65-115); Osmolality Calculated 292 mOsm/kg (285-295); Potassium 3.7 mmol/L (3.5-5.1); Sodium 135 mmol/L (136-145)
--- NOTE | 2025-01-28 09:20 | W.PM.OPSUD ---
Surgery/Procedure H&P Update DATE OF PROCEDURE: January 28, 2025 DATE H&P PERFORMED: 01/06/25 H&P UPDATE INFORMATION: I have reviewed H&P completed within last 30 days, I have examined patient prior to procedure, No changes to prior documentation and Risks and benefits of the procedure reviewed PREOP DIAGNOSIS: Screening colonoscopy PLANNED PROCEDURE: Operation Date: 01/28/25 08:30 Proposed Procedures p Colonoscopy [id number] G0105 Z12.11(Not Applicable) - Les Joiner MD
[2025-01-28 09:42] VITALS: BP 113/77; PULSE 96; RESP 16; TEMP 36.3; O2SAT 98
[2025-01-28 10:00] VITALS: BP 126/81; PULSE 95; RESP 16; O2SAT 98
[2025-01-28 10:05] VITALS: BP 122/84; PULSE 90; RESP 16; O2SAT 96
[2025-01-28 10:30] VITALS: BP 116/87; PULSE 88; RESP 16; O2SAT 96
--- NOTE | 2025-01-28 10:45 | ANE.PACU2 ---
Inpatient post-anesthesia follow up: Airway intact: Yes Vital signs: Temperature 97.4 F Pulse Rate 88 Respiratory Rate 16 Blood Pressure 116/87 Pulse Oximetry 96 Oxygen Delivery Me thod Room Air Oxygen Flow Rate Fraction of Inspir ed Oxygen Hydration adequate: Yes Nausea and vomiting: No Pain level: 1 Mental status: Baseline
== END 2025-01-28 10:45 | disposition home or self-care (01) ==
PROVIDERS: Student in an Organized Health Care Education/Training Program; PCP Family Medicine; Visit Provider Student in an Organized Health Care Education/Training Program
PROC: 0DJD8ZZ Inspection of Lower Intestinal Tract, Via Natural or Artificial Opening Endoscopic (ICD-10-PCS; CPT 45378; principal; 2025-01-28 08:30)
DX: Z12.11 Encounter for screening for malignant neoplasm of colon (principal); K57.30 Diverticulosis of large intestine without perforation or abscess without bleeding; F41.9 Anxiety disorder, unspecified; I10 Essential (primary) hypertension; G47.33 Obstructive sleep apnea (adult) (pediatric); Z99.89 Dependence on other enabling machines and devices
CPT/HCPCS: 45378; 80048; 96374; J1885; J2405; J2704; J7030